=== PATIENT | male | born 1945 | race Caucasian/White ===

== ENCOUNTER → 2025-03-08 07:42 | Outpatient (REF) | payer MEDICARE, OTHER, SELFPAY | LOC: RAD 07:42 | PROVIDERS: ATTENDING PHYSICIAN Family Medicine; REFERRING PHYSICIAN Internal Medicine Cardiovascular Disease | DX: R22.41 Localized swelling, mass and lump, right lower limb (principal) | CPT/HCPCS: 73702; Q9967 ==